=== PATIENT | female | born 1995 | race Caucasian/White ===

== ENCOUNTER 2017-03-28 07:53 | Emergency (ER) | payer OTHER ==
[2017-03-28] MEDS ORDERED: DIPH/PERTUSS(ACELL)/TETANUS VAC/PF 0.5 ML SYR (>=10YO) IM ONE (09:25)
[2017-03-28] MEDS ORDERED: ACETAMINOPHEN 325 MG TABLET PO ONE (09:26)
--- NOTE | 2017-03-28 09:28 | ER Document Report ---
ED Wound - General Chief Complaint: Laceration Stated Complaint: FINGER LACERATION Time Seen by Provider: 03/28/17 09:13 TRAVEL OUTSIDE OF THE [place] IN LAST 30 DAYS: No - HPI Patient complains to provider of: Laceration - tetanus not UTD Occurred: Just prior to arrival Onset/Duration: Sudden Context: Injury - cut the radial aspect of the left index finger with a box packer Capillary refill: < 3 seconds Sensations intact: Yes - Related Data Allergies/Adverse Reactions: No Known Allergies Allergy (Verified 03/28/17 07:55) Past Medical History - Social History Smoking Status: Never Smoker Chew tobacco use (# tins/day): No Frequency of alcohol use: Social Drug Abuse: None Family History: Reviewed & Not Pertinent Patient has suicidal ideation: No Patient has homicidal ideation: No Renal/ Medical History: Denies: Hx Peritoneal Dialysis Surgical Hx: Negative - Immunizations Hx Diphtheria, Pertussis, Tetanus Vaccination: - unsure Review of Systems - Review of Systems Constitutional: No symptoms reported Musculoskeletal: No symptoms reported Skin: See HPI Neurological/Psychological: No symptoms reported -: Yes All other systems reviewed and negative Physical Exam - Vital signs Vitals: Temp Pulse Resp BP Pulse Ox 98.0 F 60 20 117/64 100 03/28/17 07:55 03/28/17 07:55 03/28/17 07:55 03/28/17 07:55 03/28/17 07:55 - General General appearance: Appears well, Alert In distress: None - Cardiovascular Pulses: Normal: Radial Normal capillary refill: Yes - Extremities General upper extremity: Normal inspection, Nontender, Normal color, Normal ROM , Normal strength, Normal temperature Hand: Normal, Laceration - radial aspect of the left index finger not involving the nail, ROM intact and sensation intact. Involving subq fat but edges well approximated when left alone, no bleeding, No evidence of FB. 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 No tendon, concern for fracture, to palpation of the digit. Range of motion intact. Closed with Steri -Strips at the bedside after irrigation with Betadine. Tetanus status updated. - Vital Signs Vital signs: Temp Pulse Resp BP Pulse Ox 98.6 F 67 14 109/64 99 03/28/17 10:18 03/28/17 10:18 03/28/17 10:18 03/28/17 10:18 03/28/17 10:18 Discharge - Discharge Clinical Impression: Laceration Condition: Good Disposition: HOME, SELF-CARE Instructions: Tetanus Immunization Given ([facility]), Soap Cleansing ([facility]), Non- Sutured Laceration ([facility]) Additional Instructions: Leave the steri-strips in place, they will fall off on their own Do not submerge in water, you can shower
[2017-03-28 10:26] VITALS: BP 109/64
== END 2017-03-28 10:26 | disposition home or self-care (01) ==
LOC: ER 07:53
DX: S61.211A Laceration without foreign body of left index finger without damage to nail, initial encounter (principal); W27.8XXA Contact with other nonpowered hand tool, initial encounter; Z23 Encounter for immunization
CPT/HCPCS: 90471; 90715; 99282